=== PATIENT | female | born 1950 | race Caucasian/White ===

== ENCOUNTER 2020-07-02 09:59 | Day surgery (SDC) | payer MEDICARE, OTHER ==
[2020-07-02] MEDS ORDERED: Lactated Ringers 1,000 ML IV SCH (10:00)
[2020-07-02] MEDS ORDERED: Lactated Ringers 1,000 ML IV ONE (10:09)
[2020-07-02] MEDS ORDERED: SUBLIMAZE 100 MCG/2 ML ONE ×2 (13:17→15:00)
[2020-07-02] MEDS ORDERED: Decadron 4 MG INJ ONE (13:17)
[2020-07-02] MEDS ORDERED: Xylocaine-Mpf 2% 5 Ml Vial ONE (13:17)
[2020-07-02] MEDS ORDERED: DIPRIVAN 200 MG/20 ML IV ONE (13:17)
[2020-07-02] MEDS ORDERED: Zofran 4 MG/2 ML VIAL ONE (13:17)
--- NOTE | 2020-07-02 15:07 | HP ---
PREOPERATIVE DIAGNOSIS: Endometrial thickening on ultrasound and CT scan. PAST MEDICAL HISTORY: Includes diabetes, hyperlipidemia, hypertension, hernia repair, tubal ligation, appendectomy. FAMILY HISTORY: Lung cancer. ALLERGIES: NKDA. SOCIAL HISTORY: No tobacco and no alcohol use. PHYSICAL EXAMINATION: GENERAL: No acute distress. CVS: Regular rate and rhythm. PULMONARY: Nonlabored. ABDOMEN: Ventral hernia prior healed incision. EXTREMITIES: Normal chronic changes. ASSESSMENT AND PLAN: D&C. Diagnosis of endometrial thickening.
[2020-07-02 15:53] VITALS: BP 155/97; PULSE 88; O2SAT 97
--- NOTE | 2020-07-03 08:45 | OP ---
PROCEDURE DATE/TIME: 07/02/2020 1349 PREOPERATIVE DIAGNOSIS: Endometrial thickening on ultrasound and CT scan. POSTOPERATIVE DIAGNOSIS: Endometrial thickening on ultrasound and CT scan. PROCEDURE: Dilatation and curettage (fractionated). PROCEDURE PERFORMED BY: Sherrill Waggoner M.D. ANESTHESIA: General. ESTIMATED BLOOD LOSS: Minimal less than 50 cc. COMPLICATIONS: None. SPECIMENS: 1) Endometrial tissue. 2) Endocervical tissue. HISTORY: This is a patient who was following with me for a ventral hernia. On her CT scan irregularity was noted of the endometrium and she had a further transvaginal pelvic ultrasound which showed endometrial thickening of 2.9 cm with thickened irregular border and recommending further evaluation. Risks, benefits, alternatives regarding D&C were discussed with the patient. She understands, agrees and wants to proceed. She was seen in the preoperative area. Her H&P and consent were reviewed and confirmed. DESCRIPTION OF PROCEDURE: She was then brought back to the operative suite. Anesthesia induced. She was prepped and draped in lithotomy position. Complete time out performed. First, I did a bimanual exam. Her bimanual exam is limited from an abdominal standpoint due to her body habitus and hernia. The cervix was palpated. She does have a rectocele which is mild. No other issues identified on the bimanual exam. We then placed the weighted retractor into the vagina identified the cervix clearly. Used a single tooth tenaculum to grasp the superior aspect of the cervix. We then proceeded to take endocervical biopsies with the endocervical curette and then these were sent separate. We then dilated the cervix. Dilatation was started. After measuring the cervix with the measuring stick at approximately 8.75 cm and then we dilated from approximately 3 to 6 mm without issue. Once this was done, we used the appropriate sized curette and took scrapings from all quadrants of the uterus and then further continued to take scrapings throughout the remainder of the uterus tissue. All tissue was sent as "Endocervical tissue". We did not feel or visualize anything concerning. The tenaculum was then removed. Everything was hemostatic. The patient tolerated the procedure very well. No immediate complications. She is going to be following up with me to discuss the final pathology report as well as our next step in the plan.
== END 2020-07-02 15:55 | disposition home or self-care (01) ==
LOC: SDC 09:59
PROVIDERS: ATTEND Surgery
DX: R93.89 Abnormal findings on diagnostic imaging of other specified body structures (principal); E11.9 Type 2 diabetes mellitus without complications; I10 Essential (primary) hypertension; E78.5 Hyperlipidemia, unspecified
CPT/HCPCS: 82947; 99100; J1100; J2405; J2704; J3010

== ENCOUNTER 2020-07-30 08:21 | Inpatient (IN) | payer MEDICARE, OTHER ==
[~2020-07-30 08:21] MED LIST: Lactated Ringers 2,000 ML IV ONE; Sensorcaine 0.25% 10 ML ONE
[2020-07-30] MEDS ORDERED: Lactated Ringers 1,000 ML IV SCH (08:30)
[2020-07-30] MEDS ORDERED: Lactated Ringers 1,000 ML IV ONE ×3 (08:35→20:17)
[2020-07-30] MEDS ORDERED: MEFOXIN 2 GM PREMIX** 2 GM/50 ML ML IV ONE (08:35)
[2020-07-30] MEDS ORDERED: MEFOXIN 2 GM PREMIX** 2 GM/50 ML ML IV SCH (09:00)
[2020-07-30 09:21] LABS: ANION GAP 13.7 MEQ/L (5-15); BLOOD UREA NITROGEN 17 mg/dL (7-17); CHLORIDE 103 mmol/L (98-107); Calcium 9.6 mg/dL (8.4-10.2); Carbon Dioxide 25 mmol/L (22-30); Creatinine 1 0.37 mg/dL (0.52-1.04); EST GLOMERULAR FILTRATION RATE > 60.0 ML/MIN; Glucose 118 mg/dL (74-106); Potassium 4.6 mmol/L (3.5-5.1); SODIUM 138 mmol/L (137-145)
[2020-07-30 10:07] LABS: ABO TYPING O; RH TYPING POSITIVE
[2020-07-30 10:32] LABS: Hematocrit 35.4 % (35-47); Hemoglobin 11.2 gm/dl (12.0-16.0); Mean Cell Volume 93.9 fl (78-100); Mean Corpuscular Hemoglobin 29.7 pg (26-32); Mean Corpuscular Hgb Concent. 31.6 g/dl (32-36); Mean Platelet Volume 9.3 fl (7.5-11.0); Platelet Count 267 K/mm3 (150-450); Red Blood Count 3.77 M/mm3 (4.1-5.4); Red Cell Distribution Width 14.8 % (11.5-14.0); White Blood Count 5.9 K/mm3 (4.0-10.5)
[2020-07-30] MEDS ORDERED: Decadron 4 MG INJ ONE (11:41)
[2020-07-30] MEDS ORDERED: DIPRIVAN 200 MG/20 ML IV ONE (11:41)
[2020-07-30] MEDS ORDERED: Zofran 4 MG/2 ML VIAL ONE ×2 (11:41→18:41)
[2020-07-30] MEDS ORDERED: Versed 2 MG/2 ML Injection ONE (11:41)
[2020-07-30] MEDS ORDERED: BRIDION 200MG/2ML IV ONE (11:41)
[2020-07-30] MEDS ORDERED: Xylocaine-Mpf 2% 5 Ml Vial ONE (11:41)
[2020-07-30] MEDS ORDERED: Zemuron 100 MG/10 ML ONE ×6 (11:41→17:49)
[2020-07-30] MEDS ORDERED: SUBLIMAZE 100 MCG/2 ML ONE (11:41)
[2020-07-30] MEDS ORDERED: TORAdol 30 mg Injection ONE (11:41)
[2020-07-30] MEDS ORDERED: Astramorph-Pf 5 MG/10 ML ONE (11:52)
[2020-07-30] MEDS ORDERED: FEVERALL 650 MG PR PRN (14:07)
[2020-07-30] MEDS ORDERED: Zofran 4 MG/2 ML VIAL IV PRN (14:07)
[2020-07-30] MEDS ORDERED: Morphine PCA 1 MG/ML 30 ML IV PRN (14:07)
[2020-07-30] MEDS ORDERED: SUBLIMAZE 250 MCG/5 ML ONE (15:49)
[2020-07-30] MEDS ORDERED: TRANDATE 20 MG/4 ML SYRINGE IV ONE (17:22)
[2020-07-30] MEDS ORDERED: MEFOXIN 1 Gm/ D5W 50 Ml** 1 G/50 ML ML IV SCH (18:00)
[2020-07-30] MEDS ORDERED: Sensorcaine 0.25% 10 ML ONE (18:00)
[2020-07-30] MEDS ORDERED: Ephedrine Sulfate 50 MG/ML ONE (18:06)
[2020-07-30 18:45] LABS: Hematocrit 33.7 % (35-47); Hemoglobin 10.4 gm/dl (12.0-16.0); Mean Cell Volume 95.2 fl (78-100); Mean Corpuscular Hemoglobin 29.4 pg (26-32); Mean Corpuscular Hgb Concent. 30.9 g/dl (32-36); Mean Platelet Volume 9.2 fl (7.5-11.0); Platelet Count 273 K/mm3 (150-450); Red Blood Count 3.54 M/mm3 (4.1-5.4); Red Cell Distribution Width 14.8 % (11.5-14.0); White Blood Count 10.3 K/mm3 (4.0-10.5)
[2020-07-30 18:56] LABS: ALBUMIN 3.7 g/dL (3.5-5.0); ALKALINE PHOSPHATASE 60 U/L (38-126); ANION GAP 12.3 MEQ/L (5-15); BLOOD UREA NITROGEN 12 mg/dL (7-17); CHLORIDE 103 mmol/L (98-107); Calcium 8.7 mg/dL (8.4-10.2); Carbon Dioxide 25 mmol/L (22-30); Creatinine 1 0.41 mg/dL (0.52-1.04); EST GLOMERULAR FILTRATION RATE > 60.0 ML/MIN; Glucose 200 mg/dL (74-106); Potassium 4.1 mmol/L (3.5-5.1); SGOT/AST 23 U/L (14-36); SGPT/ALT 20 U/L (0-35); SODIUM 136 mmol/L (137-145); Total Protein 6.5 g/dL (6.3-8.2)
[2020-07-30 19:00] LABS: MAGNESIUM 1.3 mg/dL (1.6-2.3); PHOSPHOROUS 4.7 mg/dL (2.5-4.5)
[2020-07-30] MEDS ORDERED: Compazine 10 MG/2 ML ONE (19:01)
[2020-07-30 19:09] LABS: Appearance CLEAR (CLEAR); Bilirubin NEGATIVE (NEGATIVE); Blood NEGATIVE Ery/ul (0-5); Glucose NEGATIVE (NEGATIVE); Ketones TRACE (NEGATIVE); Leukocyte Esterase NEGATIVE (NEGATIVE); Mucus SLIGHT /HPF (NEGATIVE); Nitrite NEGATIVE (NEGATIVE); Protein,Urine Dip NEGATIVE (Negative); RBC 0-2 /HPF (0-2); Specific Gravity 1.015 (1.005-1.025); Urobilinogen NEGATIVE mg/dL (0-1); WBC 0-2 /HPF (0-5)
[2020-07-30 19:10] LABS: Bacteria NONE SEEN /HPF (NEGATIVE)
[2020-07-30 19:40] LABS: AB ID Interp Anti-K
[2020-07-30] MEDS: MEFOXIN 2 GM PREMIX** 2 GM/50 ML ML IV SCH (19:45)
[2020-07-30] MEDS: D5W/0.45NS W/ 20mEq KCl 1000 ML 1,000 ML IV SCH ×2 (19:45→23:34)
[2020-07-30 19:55] LABS: Antibody Screen POSITIVE (NEGATIVE)
[2020-07-30 20:31] LABS: A-aADO2 60; ABG HEMOGLOBIN 10.6; ABG POTASSIUM 3.9 (3.5-5.1); ARTERIAL BLD GAS O2 SATURATION 99.3 % (95-100); ARTERIAL BLOOD GAS BASE EXCESS 0.3 (-2.0-2.0); ARTERIAL BLOOD GAS FIO2 45 %; ARTERIAL BLOOD GAS PCO2 48 mmHg (35-45); ARTERIAL BLOOD GAS PO2 201 mmHg (75-100); ARTERIAL BLOOD GAS pH 7.35 (7.35-7.45); CARBOXYHEMOGLOBIN 1.1 % THgb (0.0-6.9); HCO3- 26.5 (22-28); HGB O2 SAT 97.3 g/dF (94-100); Methhemoglobin 0.9 % (1.4-1.5)
[2020-07-30 20:32] LABS: ABG SITE RIGHT BRACHIAL
[2020-07-30] MEDS ORDERED: HUMALOG SQ PRN (20:33)
[2020-07-30] MEDS ORDERED: Levofloxacin 500MG/100ML D5W 500 MG/100 ML BAG IV ONE (20:56)
[2020-07-30] MEDS: Magnesium 1 Gm / 100 Ml D5W*** 100 ML IV SCH ×2 (21:24→22:10)
[2020-07-30] MEDS: Lactated Ringers 1,000 ML IV SCH (21:24)
[2020-07-30 21:51] LABS: Blood Bank Reference Report See Result Note:
[2020-07-31] MEDS: Magnesium 1 Gm / 100 Ml D5W*** 100 ML IV SCH ×2 (02:37→02:41)
[2020-07-31] MEDS: MEFOXIN 2 GM PREMIX** 2 GM/50 ML ML IV SCH ×2 (02:48→07:21)
[2020-07-31 05:30] LABS: Hematocrit 32.1 % (35-47); Hemoglobin 9.9 gm/dl (12.0-16.0); Mean Cell Volume 95.3 fl (78-100); Mean Corpuscular Hemoglobin 29.4 pg (26-32); Mean Corpuscular Hgb Concent. 30.8 g/dl (32-36); Mean Platelet Volume 9.3 fl (7.5-11.0); Platelet Count 247 K/mm3 (150-450); Red Blood Count 3.37 M/mm3 (4.1-5.4); Red Cell Distribution Width 14.9 % (11.5-14.0)
[2020-07-31 06:22] LABS: ANION GAP 12.3 MEQ/L (5-15); BLOOD UREA NITROGEN 11 mg/dL (7-17); CHLORIDE 103 mmol/L (98-107); Calcium 8.6 mg/dL (8.4-10.2); Carbon Dioxide 26 mmol/L (22-30); Creatinine 1 0.44 mg/dL (0.52-1.04); EST GLOMERULAR FILTRATION RATE > 60.0 ML/MIN; Glucose 165 mg/dL (74-106); Potassium 4.4 mmol/L (3.5-5.1); SODIUM 137 mmol/L (137-145)
[2020-07-31] MEDS: Lactated Ringers 1,000 ML IV SCH ×2 (06:31→14:09)
--- NOTE | 2020-07-31 08:50 | XRAY ---
Indication: Postoperative lethargy and short of breath. Comparison: None. Initial portable chest taken at 2038 hrs demonstrates radiolucency overlying lateral arcs of left 6/7 ribs concerning for nondisplaced fracture. Finding not seen on additional chest taken at 2041 hrs. Also mild adjacent subcutaneous emphysema and minimal left lung base atelectasis presumed related. Remaining heart and right lung unremarkable. Incidental moderate multilevel degenerative spondylosis and moderate dextroscoliosis centered at T8. Impression: Query nondisplaced left 6/7 rib fractures with left base atelectasis and left chest wall subroutines emphysema.
--- NOTE | 2020-07-31 08:56 | XRAY ---
Indication: One day postop exam. Comparison: One day earlier. Portable chest again questions nondisplaced fracture lateral arc left 6th rib with mild worsening left base subsegmental atelectasis and new tiny effusion/hemothorax but no pneumothorax. Stable adjacent subcutaneous emphysema. Remaining heart and lungs unremarkable.
[2020-07-31] MEDS: ZOCOR 20MG PO SCH (09:11)
[2020-07-31] MEDS: ENOXAPARIN SODIUM SQ SCH (09:11)
[2020-07-31] MEDS: THERAGRAN MULTIVITAMIN PO SCH (09:12)
[2020-07-31] MEDS: Zestril 20 MG PO SCH (09:12)
[2020-07-31] MEDS ORDERED: Cipro 500 MG PO PRN (10:00)
[2020-07-31] MEDS ORDERED: NON-FORMULARY ITEM (Multivitamin [Multivitamins] 1 EACH) PO SCH (10:00)
[2020-07-31] MEDS ORDERED: Levofloxacin 500MG/100ML D5W 500 MG/100 ML BAG IV SCH ×2 (10:00→22:00)
[2020-07-31] MEDS ORDERED: NON-FORMULARY ITEM (Atorvastatin Calcium [Atorvastatin Calcium] 20 MG) PO SCH (10:00)
[2020-07-31] MEDS ORDERED: MORPHINE SULFATE 2 MG INJ IV PRN (10:26)
[2020-07-31] MEDS: NORCO 5/325 MG PO PRN ×3 (10:41→22:27)
[2020-07-31] MEDS ORDERED: NORCO 5/325 MG PO PRN (14:15)
[2020-07-31] MEDS ORDERED: Cipro 500 MG PO SCH (22:00)
[2020-08-01] MEDS: NORCO 5/325 MG PO PRN ×3 (04:12→16:18)
[2020-08-01 07:39] LABS: Absolute Neutrophil Ct (ANC) 4.08 (1.4-6.9); BASOPHIL % 0.3 % (0.0-0.4); Basophil (Absolute #) 0.02 (0-0.4); Eosinophil % 0.9 % (0.00-5.0); Eosinophil (Absolute #) 0.06 (0-0.5); Hematocrit 29.4 % (35-47); Hemoglobin 8.7 gm/dl (12.0-16.0); Lymphocyte (Absolute #) 2.28 (1.0-4.6); Lymphocytes % 32.4 % (24.0-44.0); Mean Cell Volume 98.7 fl (78-100); Mean Corpuscular Hemoglobin 29.2 pg (26-32); Mean Corpuscular Hgb Concent. 29.6 g/dl (32-36); Monocyte (Absolute #) 0.59 (0.0-1.3); Monocytes % 8.4 % (0.0-12.0); Platelet Count 244 K/mm3 (150-450); Red Blood Count 2.98 M/mm3 (4.1-5.4); Red Cell Distribution Width 15.4 % (11.5-14.0)
[2020-08-01 07:44] LABS: ALBUMIN 3.2 g/dL (3.5-5.0); ALKALINE PHOSPHATASE 48 U/L (38-126); ANION GAP 7.2 MEQ/L (5-15); BLOOD UREA NITROGEN 8 mg/dL (7-17); CHLORIDE 105 mmol/L (98-107); Calcium 8.5 mg/dL (8.4-10.2); Carbon Dioxide 32 mmol/L (22-30); Creatinine 1 0.55 mg/dL (0.52-1.04); EST GLOMERULAR FILTRATION RATE > 60.0 ML/MIN; Glucose 129 mg/dL (74-106); SGOT/AST 19 U/L (14-36); SGPT/ALT 13 U/L (0-35); SODIUM 140 mmol/L (137-145)
[2020-08-01 07:45] LABS: Direct Bilirubin 0 mg/dL (0.0-0.4)
[2020-08-01] MEDS: ENOXAPARIN SODIUM SQ SCH (10:14)
[2020-08-01] MEDS: THERAGRAN MULTIVITAMIN PO SCH (10:14)
[2020-08-01] MEDS: Zestril 20 MG PO SCH (10:14)
[2020-08-01] MEDS: ZOCOR 20MG PO SCH (10:14)
[2020-08-01 12:15] VITALS: BP 125/46; PULSE 84; O2SAT 95
--- NOTE | 2020-08-24 12:21 | OP ---
PROCEDURE DATE/TIME: 07/30/2020 1238 PREOPERATIVE DIAGNOSIS: Endometrial thickening. POSTOPERATIVE DIAGNOSIS: Endometrial thickening. PROCEDURE: Difficult laparoscopic-assisted vaginal hysterectomy and bilateral salpingo-oophorectomy and difficult laparoscopic lysis of adhesions. PROCEDURE PERFORMED BY: Sherrill Waggoner M.D. [employer] SUPERVISOR: Jean Carlos Waggoner M.D. COMPLICATIONS: None. ESTIMATED BLOOD LOSS: Less than 20 cc. ANESTHESIA: General. SPECIMENS: 1) Uterus. 2) Left salpingo-oophorectomy 3) Right salpingo-oophorectomy. HISTORY: This is a 70 year-old female who had an irregularity on her ultrasound with thickened endometrium. She underwent D&C without any identification of malignancy. She is having some discomfort in her pelvic area and she would like a full hysterectomy. She also has significant abdominal wall ventral hernias which are incisional and recurrent and she has had multiple ventral hernia repairs in the past. Risks, benefits and alternatives regarding a laparoscopic possible open total abdominal hysterectomy, bilateral salpingo-oophorectomy were discussed with her in great detail. She wanted to proceed. She was seen on the day of surgery. H&P and consent reviewed with her and confirmed. Any remaining questions were answered. DESCRIPTION OF PROCEDURE: She was then brought back to the operative suite. Anesthesia was induced. She was prepped and draped in the usual sterile fashion in lithotomy position with bony prominences padded and again well-padded in good position. We then did our complete time out and then made an incision in the left upper quadrant and used the Veress needle to access the abdominal cavity. We had a good initial low opening pressure. She insufflated well. A 5 mm optical port was placed under direct visualization. She had extensive adhesions immediately upon entry. I could not visualize the right side of her abdomen nor could I visualize her pelvis or her midline. These were all coated in adhesions. There were some very tiny windows amongst the adhesions which allowed for nice insufflation of her abdomen but the adhesions were extremely dense and there were the known [place] cheese very large hernia defect as well. Since there were no other options at this point, I then placed another 5 port incision left lateral. Through these two ports I was able to clear off a small area down the left gutter and then I was able to place another laparoscopic 5 port on the left gutter and then with these three incisions I was able to retract, visualize and lyse further adhesions which allowed me to take down the falciform ligament and then from the superior aspect I was able to take my camera through the small window that I had made over to the right side of the abdomen and then I was able to get a port in over here. I placed the 5 port in the right mid abdomen and then placing the camera through here I was able to very gently sweep away adhesions with the camera allowing me to place another 5 port on the right side and then through this I carried out further adhesiolysis on the right side. Once I did this we went back to the left side. We continued along the pelvic gutter. I did place another port on the lower left and this one I placed as a 12 port since we would need a stapler. I then went back to the right side and after this back and forth for quite some time I was able to free down low in the pelvis enough space so that I could see the left from the right and so I could see the right from the left side this was below the hernia. Her hernia starts about 3 cm above the rim of the pubis giving us enough room to visualize the uterus and bilateral adnexa. Once we had accomplished this extremely difficult adhesiolysis which took hours, then we were able to place another 12 port on the right side and perform the beginning of our hysterectomy. I was not able to have a central camera due to the significant ventral hernia and so we utilized the lower 5 port from our left and right side and we continuously changed our camera angle so that we could constantly have the best view possible. We did use a 30 degrees camera for the majority of this case to accomplish this. With clear visualization of the uterus, round ligament, anterior of the ovarian veins on both sides, we also identified the course of the ureter and then we used a white load laparoscopic stapler at the time on both sides to take the ovarian vein down to round ligament and then on to the uterus. Once we had the uterus somewhat free, we then decided to perform the rest of our hysterectomy vaginally. We insured everything was hemostatic. There were no injuries from adhesiolysis. Everything looked satisfactory up top and then we went down below. We placed the weighted speculum and did a vaginal exam. We then placed the quadruple tenaculum. I did have to use an Allis to help pull down to get this in place. The patient had a quite narrow vagina and this also made this part of the procedure difficult as well. With the quadruple tenaculum on, we gently retracted and we were able to open the portio using Bovie cautery right around the cervix and at the apex of the vaginal vault. Through the portio, we then placed our Lg clamp cut and tied with 0 PDS with excellent hemostasis. We did this laterally. I was then able to enter into our previously dissected peritoneal cavity posteriorly and then we were able to create a bladder flap anteriorly and then continued our dissection laterally with clamps and ties using 0 PDS and we did this six times until we fully had our uterus free from its lateral attachment as well as the uterosacral ligament. Once this was completely free it was fully removed from the vagina and sent to pathology. This uterus was sizeable and we gently had to deliver it and allow some blood egress because it was so large but we were able to get it out without any complications. We then closed the peritoneum in a running fashion and then we closed the vaginal vault by laying in our 0 PDS sutures and then tying these sequentially. We re-inflated the abdomen and again did a final inspection. The peritoneal suture line overlying the vaginal vault looked excellent without issue. Adhesiolysis looked excellent. We closed our 12 port with 0 Vicryl. We then removed the remaining 5 port. We irrigated minimally in her pelvis but we fully irrigated all of her skin incisions and then closed with 4-0 Monocryl, Steri-Strips, sterile dressing and a binder. We placed some vaginal packing. The patient tolerated the procedure very well. There were no immediate complications. She is going to be admitted for further monitoring and then once she meets discharge protocol will be discharged home and will be following up as an outpatient.
== END 2020-08-01 16:51 | disposition home or self-care (01) | DRG 743 ==
LOC: UNDOADMIN 08:21 → MED SURG 08:21 → ICU 08:21 → EDSTATUS 09:36
PROVIDERS: ADMIT Surgery; ATTEND Surgery
PROC: 0UT9FZZ Resection of Uterus, Via Natural or Artificial Opening With Percutaneous Endoscopic Assistance (ICD-10-PCS; principal; 2020-07-30)
PROC: 0UT7FZZ Resection of Bilateral Fallopian Tubes, Via Natural or Artificial Opening With Percutaneous Endoscopic Assistance (ICD-10-PCS; 2020-07-30)
PROC: 0UT2FZZ Resection of Bilateral Ovaries, Via Natural or Artificial Opening With Percutaneous Endoscopic Assistance (ICD-10-PCS; 2020-07-30)
PROC: 0DNW4ZZ Release Peritoneum, Percutaneous Endoscopic Approach (ICD-10-PCS; 2020-07-30)
DX: N80.0 Endometriosis of uterus (principal); D25.9 Leiomyoma of uterus, unspecified; R93.89 Abnormal findings on diagnostic imaging of other specified body structures; K66.0 Peritoneal adhesions (postprocedural) (postinfection); N72 Inflammatory disease of cervix uteri; K43.9 Ventral hernia without obstruction or gangrene; E11.9 Type 2 diabetes mellitus without complications; I10 Essential (primary) hypertension; Z86.79 Personal history of other diseases of the circulatory system; Z79.899 Other long term (current) drug therapy; N83.312 Acquired atrophy of left ovary; N83.311 Acquired atrophy of right ovary
CPT/HCPCS: 36415; 36600; 71045; 80048; 80053; 80076; 81001; 82375; 82803; 82947; 83036; 83735; 84100; 85025; 85027; 86850; 86870; 86900; 86901; 86922; 87086; 88307; 93005; 94002; 94760; 99100; J0694; J1100; J1650; J1817; J1885; J1956; J2250; J2274; J2405; J2704; J3010; J3475; L0625; A9270-GY